=== PATIENT | male | born 1990 | race Caucasian/White ===

== ENCOUNTER 2019-03-18 17:01 | Emergency (ER) | payer BC ==
--- NOTE | 2019-03-18 17:50 | EDM.PDOC ---
ED HPI GENERAL MEDICAL PROBLEM - General Chief Complaint: Respiratory Problem Stated Complaint: COUGHING UP BLOOD Time Seen by Provider: 03/18/19 17:43 - History of Present Illness INITIAL COMMENTS - FREE TEXT/NARRATIVE: 28-year-old male presents emergency room with a worsening cough. This cough has been present for a little over 24 hours progressively getting worse it initially started coughing up clear sputum last night he noticed it was blood-tinged at times this is resolved and now he is bringing up some greenish to brown off-color sputum. The patient is not aware of any fevers or chills. The patient thought maybe he was wheezing a little bit last night. - Related Data Allergies Allergy/AdvReac Type Severity Reaction Status Date / Time Penicillins Allergy Cannot Verified 03/18/19 17:17 Remember Home Meds: Home Meds Azithromycin 250 mg PO Q24H #6 tablet 03/18/19 [Rx] Past Medical History HEENT History: Reports: None Cardiovascular History: Reports: None Respiratory History: Reports: None Genitourinary History: Reports: None Musculoskeletal History: Reports: None Neurological History: Reports: None Psychiatric History: Reports: None Endocrine/Metabolic History: Reports: None Hematologic History: Reports: None Immunologic History: Reports: None Oncologic (Cancer) History: Reports: None Dermatologic History: Reports: None - Infectious Disease History Infectious Disease History: Reports: None - Past Surgical History GI Surgical History: Reports: Cholecystectomy Social & Family History - Tobacco Use Smoking Status *Q: Never Smoker - Caffeine Use Caffeine Use: Reports: Soda - Recreational Drug Use Recreational Drug Use: No ED ROS GENERAL - Review of Systems Review Of Systems: See Below Constitutional: Reports: Fever, Chills HEENT: Reports: No Symptoms Respiratory: Reports: Wheezing, Cough, Sputum, Hemoptysis. Denies: Shortness of Breath Cardiovascular: Denies: Chest Pain, Dyspnea on Exertion, Palpitations, Syncope Endocrine: Reports: No Symptoms GI/Abdominal: Reports: No Symptoms Musculoskeletal: Reports: No Symptoms Skin: Reports: No Symptoms Neurological: Reports: No Symptoms ED EXAM, GENERAL - Physical Exam Exam: See Below Exam Limited By: No Limitations General Appearance: Alert, No Apparent Distress Head: Atraumatic, Normocephalic Neck: Normal Inspection, Supple, Non-Tender, Full Range of Motion. No: Lymphadenopathy (L), Lymphadenopathy (R) Respiratory/Chest: No Respiratory Distress, Lungs Clear, Normal Breath Sounds Cardiovascular: Regular Rate, Rhythm, No Edema, No Murmur Course - Vital Signs Last Recorded V/S: Last Vital Signs Temp 36.5 C 03/18/19 17:13 Pulse 59 L 03/18/19 17:13 Resp 16 03/18/19 17:13 BP 147/85 H 03/18/19 17:13 Pulse Ox 93 L 03/18/19 17:13 - Orders/Labs/Meds Orders: Active Orders 24 hr Category Date Time Status RT Post Treatment Assessment [RC] Click to Edit Care 03/18/19 18:11 Active RT Pre-Treatment Assessment [RC] Click to Edit Care 03/18/19 18:11 Active QUANTIFERON MTB TEST [REF] Stat Lab 03/18/19 18:19 Stop Req Meds: Medications Discontinued Medications Generic Name Dose Route Start Last Admin Trade Name Freq PRN Reason Stop Dose Admin Albuterol 0 gm 03/18/19 18:10 03/18/19 18:37 Proventil Hfa INH 03/18/19 18:11 2 each ONETIME ONE Administration - Re-Assessments/Exams Free Text/Narrative Re-Assessment/Exam: 03/18/19 18:49 Allergies chest x-ray documented granuloma in the right perihilar area radiology thought his x-ray looked normal. Discussed this with the patient he had a TB test in 2 years ago that was negative will not repeat at this point. Anticipate sending the patient home with some Zithromax and an albuterol MDI Departure - Departure Time of Disposition: 18:49 Disposition: Home, Self-Care 01 Clinical Impression: Acute bronchitis - Discharge Information Prescriptions: Azithromycin 250 mg PO Q24H #6 tablet Referrals: PCP,None [Primary Care Provider] - Forms: ED Department Discharge Additional Instructions: Return to emergency room with any questions problems worsening symptoms. Follow-up in the Hospital clinic if not improving at the end of this week. [phone]. Use inhaler he got here in the emergency room 2 puffs every 4 hours while awake. Take the antibiotic as directed. Sepsis Event Note - Evaluation Sepsis Screening Result: No Definite Risk - Focused Exam Vital Signs: Vital Signs Temp Pulse Resp BP Pulse Ox 03/18/19 17:13 36.5 C 59 L 16 147/85 H 93 L Date Exam was Performed: 03/18/19 Time Exam was Performed: 18:45 - My Orders Last 24 Hours: My Active Orders 03/18/19 18:11 RT Post Treatment Assessment [RC] Click to Edit RT Pre-Treatment Assessment [RC] Click to Edit 03/18/19 18:19 QUANTIFERON MTB TEST [REF] Stat - Assessment/Plan Last 24 Hours: My Active Orders 03/18/19 18:11 RT Post Treatment Assessment [RC] Click to Edit RT Pre-Treatment Assessment [RC] Click to Edit 03/18/19 18:19 QUANTIFERON MTB TEST [REF] Stat
[2019-03-18] MEDS ORDERED: Albuterol 6.7 GM Inhaler INH ONE (18:10)
--- NOTE | 2019-03-18 18:26 | CR ---
Chest: 2 views of the chest were obtained. Comparison: No prior chest x-ray. Heart size and mediastinum are normal. Lungs are clear. Bony structures within normal limits for the patient's age. Impression: 1. Nothing acute is seen on 2 view chest x-ray. Diagnostic code #1 This report was dictated in [place] Standard Time
== END 2019-03-18 19:02 | disposition home or self-care (01) ==
LOC: JD.ED 17:01
DX: J20.9 Acute bronchitis, unspecified (principal); Z88.0 Allergy status to penicillin; Z90.49 Acquired absence of other specified parts of digestive tract
CPT/HCPCS: 36415; 71046; 94640; 99283; A9270